=== PATIENT | female | born 2005 | race Caucasian/White ===

== ENCOUNTER 2023-10-21 11:12 | Outpatient (CLI) | payer OTHER, SELFPAY | END 2023-10-21 11:13 | disposition home or self-care (01) | LOC: NFLDREF 11:13 | PROVIDERS: PCP Family Medicine; Visit Provider Registered Nurse | DX: Z11.3 Encounter for screening for infections with a predominantly sexual mode of transmission (principal) | CPT/HCPCS: 87491; 87591 ==

== ENCOUNTER 2025-04-24 11:44 | Outpatient (CLI) | payer BC, SELFPAY ==
[2025-04-24 15:19] LABS: Bacterial Vaginosis* Negative (Negative); Candida glab/krus NOT DETECTED (No Detected)
[2025-04-24 15:51] LABS: Chlamydia DNA Amplified* NOT DETECTED (No Detected); GC DNA Amplified* NOT DETECTED (No Detected)
[2025-04-26 09:48] LABS: Pap Test Digital Imaging Done
== END 2025-04-24 11:45 | disposition home or self-care (01) ==
PROVIDERS: PCP Family Medicine; Visit Provider Registered Nurse
DX: Z11.3 Encounter for screening for infections with a predominantly sexual mode of transmission (principal); Z12.4 Encounter for screening for malignant neoplasm of cervix
CPT/HCPCS: 81513; 87481; 87491; 87591; 87624; 87625; 87661; 88141; 88142; 88175